=== PATIENT | male | born 2000 | race Two or more races ===

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

== ENCOUNTER 2024-11-17 12:56 | Inpatient (IN) | payer MEDICAID ==
[~2024-11-17] VITALS: Ht 167.6 cm; Wt 136.1 kg
[2024-11-17] MEDS ORDERED: KETOROLAC TROMETHAMINE 15 MG/ML VIAL ONE (13:27)
[2024-11-17] MEDS: KETOROLAC TROMETHAMINE 15 MG/ML VIAL IV ONE (13:38)
[2024-11-17] MEDS: IV NS 0.9% 1,000 ML BAG IV ONE (13:38)
[2024-11-17 14:06] LABS: PLATELET COUNT (AUTO) 233 K/uL (150-450); RED BLOOD CELL COUNT(AUTO) 5.70 MIL/uL (4.5-6.0); RED CELL DISTRIBUTION WIDTH 14.0 % (11.5-15.0); WHITE BLOOD COUNT (AUTO) 9.5 K/uL (4.3-11.0)
[2024-11-17 14:16] LABS: CALCIUM, SERUM 9.3 mg/dL (8.5-10.1); CREATININE 1.0 mg/dL (0.6-1.3); SODIUM SERUM 140.0 mmol/L (136-145); UREA NITROGEN, BLOOD 13.0 mg/dL (7-18)
[2024-11-17 14:19] LABS: PHOSPHORUS 2.7 mg/dL (2.5-4.9)
[2024-11-17 14:27] LABS: CREATINE KINASE, TOTAL 1170.0 U/L (39-308)
[2024-11-17] MEDS ORDERED: METHOCARBAMOL (750MG) 750 MG TABLET PO PRN ×2 (16:00→16:15)
[2024-11-17] MEDS: IV LR 1000 ML 1,000 ML IV PRN (18:47)
[2024-11-17] MEDS: HYDROCODONE/APAP 5/325MG TABLET PO PRN (18:48)
[2024-11-18] MEDS: ONDANSETRON HCL/PF 4 MG/2 ML VIAL IVP PRN (01:45)
[2024-11-18] MEDS: ACETAMINOPHEN 325 MG TABLET PO PRN (01:52)
[2024-11-18 04:00] VITALS: BP 108/55; TEMP 98; O2SAT 98
[2024-11-18] MEDS: PANTOPRAZOLE 40 MG TABLET.DR PO SCH (08:31)
[2024-11-18 12:32] LABS: PLATELET COUNT (AUTO) 223 K/uL (150-450); RED BLOOD CELL COUNT(AUTO) 5.34 MIL/uL (4.5-6.0); RED CELL DISTRIBUTION WIDTH 13.9 % (11.5-15.0); WHITE BLOOD COUNT (AUTO) 7.3 K/uL (4.3-11.0)
[2024-11-18 12:40] LABS: CALCIUM, SERUM 8.9 mg/dL (8.5-10.1); CREATININE 1.0 mg/dL (0.6-1.3); SODIUM SERUM 139.0 mmol/L (136-145); UREA NITROGEN, BLOOD 11.0 mg/dL (7-18)
[2024-11-18 12:43] LABS: CREATINE KINASE, TOTAL 736.0 U/L (39-308)
[2024-11-18 15:51] VITALS: TEMP 98
[2024-11-18] MEDS ORDERED: METH-649 PO (16:29)
== END 2024-11-18 16:00 | disposition home or self-care (01) | DRG 351 ==
LOC: ER 13:02 → EDBD 16:00 → MEDSG1 16:00
PROVIDERS: ADMIT Nurse Practitioner Family; ATTEND Nurse Practitioner Family
DX: M62.82 Rhabdomyolysis (principal); E66.01 Morbid (severe) obesity due to excess calories; Z85.6 Personal history of leukemia; Z68.42 Body mass index [BMI] 45.0-49.9, adult; Z79.899 Other long term (current) drug therapy
CPT/HCPCS: 36415; 71045-TC; 80048-TC; 82550-TC; 82553; 82962-TC; 83735-TC; 84100-TC; 85025-TC; G0378; J1885; J2405; J7030; J7060; J7120

== ENCOUNTER 2024-12-03 11:58 | Emergency (ER) | payer SELFPAY ==
[~2024-12-03] VITALS: Ht 180.3 cm; Wt 149.7 kg
[~2024-12-03 11:58] MED LIST: METH-649 PO
[2024-12-03 13:09] LABS: PLATELET COUNT (AUTO) 223 K/uL (150-450); RED BLOOD CELL COUNT(AUTO) 5.56 MIL/uL (4.5-6.0); RED CELL DISTRIBUTION WIDTH 13.7 % (11.5-15.0); WHITE BLOOD COUNT (AUTO) 9.1 K/uL (4.3-11.0)
[2024-12-03 13:20] LABS: CALCIUM, SERUM 9.4 mg/dL (8.5-10.1); CREATININE 1.0 mg/dL (0.6-1.3); SODIUM SERUM 143.0 mmol/L (136-145); UREA NITROGEN, BLOOD 12.0 mg/dL (7-18)
[2024-12-03 14:02] VITALS: BP 135/73; TEMP 98.3; O2SAT 97
== END 2024-12-03 14:02 | disposition home or self-care (01) ==
LOC: ER 12:02
DX: R55 Syncope and collapse (principal); R42 Dizziness and giddiness; R53.1 Weakness; E66.01 Morbid (severe) obesity due to excess calories; F17.200 Nicotine dependence, unspecified, uncomplicated; Z68.42 Body mass index [BMI] 45.0-49.9, adult
CPT/HCPCS: 36415; 71045-TC; 80048-TC; 82962-TC; 85025-TC